=== PATIENT | female | born 1985 | race Caucasian/White ===

== ENCOUNTER 2017-03-05 15:50 | Inpatient (IN) | payer OTHER ==
[~2017-03-05] VITALS: Ht 172.7 cm; Wt 87.5 kg
[~2017-03-05 15:50] MED LIST: BACT2OIN TOP; BEDSMIS4; CEPH500C3 PO; CYCL1PAK PO; HYDR50TA94 PO; NORC10TA2 PO; ORTHO TRI-CYCLEN PO; OXYC-360 PO; PERM5CRE TOP; STRO3TAB PO; TRAM-388 PO; TRAM50 PO; WHEEMIS3 XX; Z.0.WALKERFRONT
[2017-03-05 16:05] VITALS: BP 110/67; PULSE 79; RESP 16; TEMP 98; O2SAT 100
[2017-03-05] MEDS ORDERED: XANA2TAB2 PO (16:22)
[2017-03-05] MEDS ORDERED: SERO50TA PO (16:22)
[2017-03-05] MEDS ORDERED: TRAZ100T6 PO (16:22)
[2017-03-05] MEDS ORDERED: VENL50TA PO (16:22)
[2017-03-05 18:07] VITALS: BP 86/49; PULSE 77; RESP 18; O2SAT 98
--- NOTE | 2017-03-05 21:12 | PD ---
HPI Chief Complaint: Psychiatric Symptoms Time Seen by Provider: 21:10 Travel History International Travel<30 days: No Contact w/Intl Traveler<30days: No Traveled to known affect area: No History of Present Illness HPI 31-year-old female is brought to the emergency Department under Nino act by local police. Apparently, the patient was at [facility] use some are none after an accident overdose on heroin. She was admitted to the hospital. However, upon discharge, she got into a fight with her mother and she was Nino acted and brought to [facility]. She denies any suicidal or homicidal ideation to me. Patient states that she just cannot a rehabilitation and used heroin once. She denies any medical complaints at this time. COUNTS INCLUDE 234 BEDS AT THE [facility] Past Medical History Anxiety: Yes Depression: Yes Cancer: No (CONE BIOPSY -CERVIC) Cardiovascular Problems: No Diabetes: No Diminished Hearing: No Glaucoma: No Genitourinary: No Hepatitis: No Hiatal Hernia: No Hypertension: No Musculoskeletal: No Neurologic: No Respiratory: No Thyroid Disease: No ?: Unknown LMP: OVER 1 YEAR : 2 Para: 1 Miscarriage: 0 : 1 Past Surgical History Abdominal Surgery: Yes (CSECTION) Cardiac Surgery: No Section: Yes Ear Surgery: No Endocrine Surgery: No Eye Surgery: No Genitourinary Surgery: No Gynecologic Surgery: No Thoracic Surgery: No Other Surgery: Yes Social History Alcohol Use: Yes (RARE) Tobacco Use: Yes (1 PK/DAY) Substance Use: Yes (MARIJUANA / HEROIN) Allergies-Medications (Allergen,Severity, Reaction): Coded Allergies: No Known Allergies (Verified , 07/30/15) Reported Meds & Prescriptions Reported Meds & Active Scripts Active Reported Seroquel (Quetiapine Fumarate) 50 Mg Tab 150 Mg PO HS Trazodone (Trazodone HCl) 100 Mg Tablet 200 Mg PO HS Effexor (Venlafaxine HCl) 50 Mg Tab 150 Mg PO DAILY Xanax (Alprazolam) 2 Mg Tab 2 Mg PO Q8H PRN Review of Systems Except as stated in HPI: all other systems reviewed are Neg Physical Exam Narrative GENERAL: Well-nourished, well-developed female patient, ambulatory. Afebrile. SKIN: Focused skin assessment warm/dry. HEAD: Normocephalic. Atraumatic. EYES: No scleral icterus. No injection or drainage. NECK: Supple, trachea midline. No JVD or lymphadenopathy. CARDIOVASCULAR: Regular rate and rhythm without murmurs, gallops, or rubs. RESPIRATORY: Breath sounds equal bilaterally. No accessory muscle use. Lungs sounds are clear to auscultation. GASTROINTESTINAL: Abdomen soft, non-tender, nondistended. MUSCULOSKELETAL: No cyanosis, or edema. PSYCHIATRIC: No delusional thought processes. No hallucinations. Data Data Last Documented VS Vital Signs Date Time Temp Pulse Resp B/P Pulse Ox O2 Delivery O2 Flow Rate FiO2 03/05/17 22:34 80 18 112/59 03/05/17 18:07 98 03/05/17 16:05 98.0 Orders Psych Screen (03/05/17 16:26) Complete Blood Count With Diff (03/05/17 20:51) Comprehensive Metabolic Panel (03/05/17 20:51) Ed Urine Pregnancytest Poc (03/05/17 20:51) Drug Screen, Random Urine (03/05/17 20:51) Alcohol (Ethanol) (03/05/17 20:51) Labs Laboratory Tests Test 03/05/17 21:21 White Blood Count 7.4 TH/MM3 Red Blood Count 3.96 MIL/MM3 Hemoglobin 11.5 GM/DL Hematocrit 33.6 % Mean Corpuscular Volume 84.9 FL Mean Corpuscular Hemoglobin 28.9 PG Mean Corpuscular Hemoglobin 34.1 % Concent Red Cell Distribution Width 14.6 % Platelet Count 256 TH/MM3 Mean Platelet Volume 7.0 FL Neutrophils (%) (Auto) 48.8 % Lymphocytes (%) (Auto) 36.0 % Monocytes (%) (Auto) 6.3 % Eosinophils (%) (Auto) 8.4 % Basophils (%) (Auto) 0.5 % Neutrophils # (Auto) 3.6 TH/MM3 Lymphocytes # (Auto) 2.6 TH/MM3 Monocytes # (Auto) 0.5 TH/MM3 Eosinophils # (Auto) 0.6 TH/MM3 Basophils # (Auto) 0.0 TH/MM3 CBC Comment DIFF FINAL Differential Comment Sodium Level 140 MEQ/L Potassium Level 3.9 MEQ/L Chloride Level 108 MEQ/L Carbon Dioxide Level 24.6 MEQ/L Anion Gap 7 MEQ/L Blood Urea Nitrogen 11 MG/DL Creatinine 0.73 MG/DL Estimat Glomerular Filtration 94 ML/MIN Rate Random Glucose 89 MG/DL Calcium Level 8.2 MG/DL Total Bilirubin 0.2 MG/DL Aspartate Amino Transf 13 U/L (AST/SGOT) Alanine Aminotransferase 20 U/L (ALT/SGPT) Alkaline Phosphatase 83 U/L Total Protein 6.1 GM/DL Albumin 2.9 GM/DL Ethyl Alcohol Level LESS THAN 3 MG/DL MDM Medical Decision Making Medical Screen Exam Complete: Yes Emergency Medical Condition: Yes Medical Record Reviewed: Yes Differential Diagnosis Depression versus anxiety versus substance abuse Narrative Course 31-year-old female presents to the emergency Department under Nino act by local police. She denies any suicidal or homicidal ideation to me. CBC, CMP, alcohol level, urine drug screen, urine test are ordered and pending. CBC shows no acute abnormality. CMP shows no acute abnormality. Alcohol level is less than 3. UDS is pending. Patient is medically cleared for psychiatric screening and disposition. Mental health screening discussed with the patient. Psychiatric screen ordered. Diagnosis Primary Impression: Medical clearance for psychiatric admission Additional Instructions: Patient is medically cleared for psychiatric screening and disposition. Condition: Stable Harleen Becker Mar 05, 2017 21:11
[2017-03-05 21:53] LABS: AUTOMATED NEUTROPHIL # 3.6 TH/MM3 (1.8-7.7); BASOPHIL % 0.5 % (0.0-2.0); EOSINOPHIL # 0.6 TH/MM3 (0-0.4); EOSINOPHIL % 8.4 % (0.0-4.0); HEMATOCRIT 33.6 % (35.0-46.0); HEMO FLAGS DIFF FINAL; LYMPHOCYTE # 2.6 TH/MM3 (1.0-4.8); MEAN CELL VOLUME 84.9 FL (80.0-100.0); MEAN CORPUSCULAR HEMOGLOBIN 28.9 PG (27.0-34.0); MEAN CORPUSCULAR HGB CONC 34.1 % (32.0-36.0); MONO % 6.3 % (0.0-8.0); NEUT % 48.8 % (16.0-70.0); PLATELET COUNT 256 TH/MM3 (150-450); RED BLOOD COUNT 3.96 MIL/MM3 (4.00-5.30); RED CELL DISTRIBUTION WIDTH 14.6 % (11.6-17.2); WHITE BLOOD COUNT 7.4 TH/MM3 (4.0-11.0)
[2017-03-05 22:08] LABS: ANION GAP 7 MEQ/L (5-15); AST (GOT) 13 U/L (15-37); BICARBONATE 24.6 MEQ/L (21.0-32.0); BLOOD UREA NITROGEN 11 MG/DL (7-18); CHLORIDE 108 MEQ/L (98-107); GLOMERULAR FILTRATION RATE 94 ML/MIN (>89); POTASSIUM 3.9 MEQ/L (3.5-5.1); SODIUM (NA) 140 MEQ/L (136-145)
[2017-03-05 22:09] LABS: ALT (GPT) 20 U/L (10-53)
[2017-03-05 22:11] LABS: ALKALINE PHOSPHATASE 83 U/L (45-117); TOTAL BILIRUBIN ADULT 0.2 MG/DL (0.2-1.0)
[2017-03-05 22:34] VITALS: BP 112/59; PULSE 80; RESP 18
[2017-03-06 04:52] LABS: AMPHETAMINE, URINE NEG (NEG); BARBITURATES, URINE NEG (NEG); COCAINE, URINE NEG (NEG)
[2017-03-06 06:17] VITALS: BP 127/75; PULSE 67; RESP 16
[2017-03-06] MEDS ORDERED: traZODone HCL 50 MG TAB PO PRN (09:30)
[2017-03-06] MEDS ORDERED: MAGNESIUM HYDROXIDE SUSP 30 ML CUP PO PRN (09:30)
[2017-03-06] MEDS ORDERED: ALUMINUM/MAGNESIUM/SIMETH 30 ML CUP PO PRN (09:30)
[2017-03-06] MEDS ORDERED: LORazepam 0.5 MG TAB PO PRN (09:30)
[2017-03-06] MEDS ORDERED: LORazepam 2 MG/ML VIAL IM PRN ×2 (09:30)
--- NOTE | 2017-03-06 09:38 | HHI.HP ---
Provisional Diagnosis Admission Date [place] I. Major depression, single episode Certification of Person's Competence To Provide Express and Informed Consent I have personally examined Lilian Lozada , a person being served at [facility] on, Mar 06, 2017 09:27. Express and informed consent means consent voluntarily given in writing, by a competent person, after sufficient explanation and disclosure of the subject matter involved to enable the person to make a knowing and willful decision without any element of force, fraud, deceit, duress, or other form of constraint or coercion. This person is 18 years of age or older, is not now known to be incompetent to consent to treatment with a guardian advocate, and does not have a health care surrogate or proxy currently making medical treatment decisions. I have found this person to be one of the following: [x] Competent to provide express and informed consent, as defined above, for voluntary admission to this facility and is competent to provide express and informed consent for treatment. He/she has the consistent capacity to make well reasoned, willful, and knowing decisions concerning his or her medical or mental health treatment. The person fully and consistently understands the purpose of the admission for examination/placement and is fully capable of personally exercising all rights assured under [place] Incompetent to provide express and informed consent to voluntary admission, and this is incompetent to provide express and informed consent to treatment. The person must be transferred to involuntary status and a petition for a guardian advocate filed with the Circuit Court. [] Refusing to provide express and informed consent to voluntary admission but is competent to provide express and informed consent for treatment. The person must be discharged or transferred to involuntary status. Form shall be completed within 24 hours of a person's arrival at the receiving facility and filed in the clinical record of each person: 1. Admitted on a voluntary basis 2. Permitted to provide express and informed consent to his/her own treatment 3. Allowed to transfer from involuntary to voluntary status 4. Prior to permitting a person to consent to his or her own treatment after having been previously found incompetent to consent to treatment. History of Present Illness Capacity: Has Capacity HPI 31-year-old female who was brought in under a Nino act filled out by law enforcement, which indicates "stated that she will hurt herself and would rather ." Furthermore, the business law instructor was called by the patient 's mother as the patient was being released from [facility], after an overdose. The patient's mother is apparently gravely concerned about the patient's well- being and feels the patient is at high risk for self-harm. Additionally, after the overdose, the patient's roommates reportedly found her in the bathroom, not adequately breathing. When confronted with this information, the patient provides contradictory and inadequate answers. She states the business law instructor who Nino acted her went to high school with her, thereby attempting to dismiss his report. She is not aware of her roommates finding her in the bathroom, "barely breathing". She states she only overdosed one time since becoming clean several weeks ago at a rehabilitation center. She is currently denying suicidal or homicidal ideation, plan or intent. However, she refuses to go home to her mother and declines to go back to her roommates. She is not employed and obviously having difficulty caring for herself. This physician does not feel the patient is a credible or reliable historian and that her contradictory statements about wanting to make her a high risk for another suicide attempt. She has symptoms of major depression including depressed mood, anhedonia, suicidal thinking with attempts, diminished self-esteem, problems with concentration, feelings of helplessness, diminished energy, social withdrawal, as well as sleep and appetite disturbances. Review of Systems Except as stated in HPI: all other systems reviewed are Neg Past Psych History Psychological trauma history Denied for psychological trauma and denied for previous psychiatric treatment. Violence risk - others (6 mos) Minimal Violence risk - self (6 mos) High Substance Abuse History Drugs/Alcohol past 12 months Patient does have a history of substance abuse. She attended a detox facility several weeks ago. Past Family Social History Coded Allergies: No Known Allergies (Verified , 07/30/15) Reported Medications Quetiapine (Seroquel)50 Mg [id number] Mg PO HS #30 TAB Ref 0 03/05/17 Trazodone 100 Mg [id number] Mg PO HS #30 TAB Ref 0 03/05/17 Venlafaxine (Effexor)50 Mg [id number] Mg PO DAILY #60 TAB Ref 0 03/05/17 Alprazolam (Xanax)2 Mg Tab2 Mg PO Q8H PRN (ANXIETY) Ref 0 03/05/17 Family History Positive for mood and anxiety disorders. Social History Currently unemployed. Has no income. Has no place to stay. History of substance abuse. Patient's Strengths (min. 2) Verbal and resilience. Physical Exam GENERAL: SKIN: Warm and dry. HEAD: Normocephalic. EYES: No scleral icterus. No injection or drainage. NECK: Supple, trachea midline. No JVD or lymphadenopathy. CARDIOVASCULAR: Regular rate and rhythm without murmurs, gallops, or rubs. RESPIRATORY: Breath sounds equal bilaterally. No accessory muscle use. GASTROINTESTINAL: Abdomen soft, non-tender, nondistended. MUSCULOSKELETAL: No cyanosis, or edema. BACK: Nontender without obvious deformity. No CVA tenderness. Vital Signs Vital Signs Date Time Temp Pulse Resp B/P Pulse Ox O2 Delivery O2 Flow Rate FiO2 03/06/17 06:17 67 16 127/75 03/05/17 18:07 98 03/05/17 16:05 98.0 Mental Status Examination Speech: Unremarkable Orientation: x3 Memory: Unremarkable Thought Process: Organized, Goal Directed Thought Content: Unremarkable Hallucination Type: None Attention and Concentration: Good Suicidal Ideation: Yes Previous Suicide Attempts: Yes Homicidal Ideation: No Previous Homicide Attempts: No Insight: Poor Judgment: Unrealistic Affect: Anxious, Sad Mood: Sad, Oppositional Motor Activity: Normal gait Assessment & Plan Problem List: (1) Moderately severe major depressive disorder, single episode ICD Code: F32.9 Assessment & Plan Estimated LOS: days this is a 31-year-old female brought in under a Nino act after overdose. Nino act states the patient is wanting to hurt herself and would rather . Patient is demonstrating contradictory information and is deemed to be both an unreliable historian as well as at high risk for self- harm. She is being admitted for evaluation and treatment of her depression. She also has a fractured foot which is adding to her stress and this physician is obtaining a hospitalist consult to assess. Additionally, we will obtain a comprehensive metabolic profile and CBC to determine if any metabolic problems or infectious process are causing or contributing to her depression. Additionally, we will obtain a thyroid stimulating hormone test to determine if she is hypo-or hyper per thyroid, again causing or contributing to her depression. She will receive testing for vitamin B-12 and vitamin D to determine if vitamin deficiency is causing or creating her depression. We will obtain a EKG to ensure her cardiac conduction is adequate to support psychotropic medications, including antidepressant therapy. This physician spoke with the patient's nurse regarding her current and recent behavior. Patient will also have a yard manager assigned to gather more information from the patient's mother and assist with disposition planning. Homer Olmos MD Mar 06, 2017 09:38
[2017-03-06 11:23] VITALS: BP 118/67; PULSE 80; RESP 18; O2SAT 99
[2017-03-06 11:45] LABS: BETA HCG QUANT LESS THAN 1 MIU/ML (0-5)
[2017-03-06 13:34] VITALS: BP 118/67; PULSE 80; RESP 18; O2SAT 99
[2017-03-06 14:25] VITALS: BP 144/92; PULSE 83; RESP 18; TEMP 98.7; O2SAT 99
[2017-03-06] MEDS: LORazepam 1 MG TAB PO PRN ×2 (15:36→21:48)
[2017-03-06] MEDS: ACETAMINOPHEN 325 MG TAB PO PRN ×2 (15:37→20:37)
[2017-03-07 05:05] VITALS: BP 111/69; PULSE 82; RESP 16; TEMP 98.1
[2017-03-07] MEDS: ACETAMINOPHEN 325 MG TAB PO PRN (08:17)
--- NOTE | 2017-03-07 12:41 | HHI.DS ---
Psychiatry Discharge Summary Inpatient Psychiatric care?: Yes Advance Directive: No Reason Not Provided: Due to Patient Condition Mental Health AdvanceDirective: No Health Care Proxy: No Admission Admission Date Mar 06, 2017 at 09:25 Admission Diagnosis: (1) Moderately severe major depressive disorder, single episode ICD Code: F32.9 Brief History 31-year-old female who was brought in under a Nino act filled out by law enforcement, which indicates "stated that she will hurt herself and would rather ." Furthermore, the lawn specialist was called by the patient 's mother as the patient was being released from [facility], after an overdose. The patient's mother is apparently gravely concerned about the patient's well- being and feels the patient is at high risk for self-harm. Additionally, after the overdose, the patient's roommates reportedly found her in the bathroom, not adequately breathing. When confronted with this information, the patient provides contradictory and inadequate answers. She states the lawn specialist who Nino acted her went to high school with her, thereby attempting to dismiss his report. She is not aware of her roommates finding her in the bathroom, "barely breathing". She states she only overdosed one time since becoming clean several weeks ago at a rehabilitation center. She is currently denying suicidal or homicidal ideation, plan or intent. However, she refuses to go home to her mother and declines to go back to her roommates. She is not employed and obviously having difficulty caring for herself. This physician does not feel the patient is a credible or reliable historian and that her contradictory statements about wanting to make her a high risk for another suicide attempt. She has symptoms of major depression including depressed mood, anhedonia, suicidal thinking with attempts, diminished self-esteem, problems with concentration, feelings of helplessness, diminished energy, social withdrawal, as well as sleep and appetite disturbances. Tobacco Use In Past 30 Days: No Tobacco Past 30 Days Alcohol Use: Never Hospital Course Patient was admitted to a locked, inpatient psychiatric unit. Appropriate precautions were in place throughout patient's hospital stay. Patient was seen and examined by psychiatry and also visited by counselor. The patient presents to us under a Nino Act apparently after eloping from [facility] following an unintentional opioid overdose. Patient has a history of opioid use disorder and until recently had been in treatment through the [facility]. There has been no evidence of any suicidality or homicidality on the inpatient unit. Nursing staff reports that, besides being somewhat medication seeking, the patient has been no behavioral problem. Patient seen and examined with nurse. Patient reports that after awakening from her opioid overdose, which she maintains was unintentional in nature, she was somewhat delirious and fearful of being in the hospital. She tried to leave the hospital and was apparently caught by her mother in the parking lot. Police were called, and patient was Nino Acted. The patient adamantly denies any suicidal or homicidal ideation, intent or plan on direct questioning. I can elicit no depressive or hypomanic/manic symptoms. She denies any audiovisual hallucinations, and I can elicit no delusional material. She denies a history of psychiatric diagnosis other than the substance use disorder. She denies a history of suicide attempts. She denies a family history of serious mental illness or suicide but does report that several members of the family have alcohol use disorder. She tells me that she had been working a 28 day program through the [employer] [employer] but had been sent home about a week ago because of insurance issues and relapsed to heroin. She says that she used her typical amount, but since she had been abstinent for a period of about 6 weeks, it was simply too much, and she unintentionally overdosed. She denies any other substance use. She reports that generally she lives in her mother's house and denies any access to guns or firearms. She is agreeable to proceeding to a chemical dependency treatment facility today. With the patient's permission, I have obtained collateral from the patient's mother, Raquel, over the phone. Raquel's report largely confirms the patient's narrative of the circumstances of her presentation here. Raquel does not believe that the patient has primary mental illness, "I don't think she's psycho," but is gravely concerned about the patient's substance use and would like to see her return to a residential chemical dependency program. She notes that the patient has no history of suicide attempts. I educate mother about the [place] Act. There is no evidence of a mental illness as defined under the Nino act. The patient has substance use disorder. She does not meet the Nino Act criteria after weighing the relevant factors. Treatment for her substance use disorder is what is indicated in the present case. She is agreeable to proceeding to residential chemical dependency treatment program today, and with a counselor she has arranged to go to the [facility] in [place]. Patient is to be discharged today to the [facility]. She is to follow-up with primary care. I counseled the patient regarding warning signs for need to return to the psychiatric emergency room as part of the general safety plan. Results Blood Pressure 111 / 69 Vital Signs Date Time Temp Pulse Resp B/P Pulse Ox O2 Delivery O2 Flow Rate FiO2 03/07/17 05:05 98.1 82 16 111/69 03/06/17 14:25 99 03/06/17 13:34 Room Air Laboratory Tests Test 03/05/17 03/06/17 21:21 04:16 Red Blood Count 3.96 MIL/MM3 (4.00-5.30) Hemoglobin 11.5 GM/DL (11.6-15.3) Hematocrit 33.6 % (35.0-46.0) Eosinophils (%) (Auto) 8.4 % (0.0-4.0) Eosinophils # (Auto) 0.6 TH/MM3 (0-0.4) Chloride Level 108 MEQ/L (98-107) Calcium Level 8.2 MG/DL (8.5-10.1) Aspartate Amino Transf 13 U/L (15-37) (AST/SGOT) Total Protein 6.1 GM/DL (6.4-8.2) Albumin 2.9 GM/DL (3.4-5.0) Urine Opiates Screen POS (NEG) Urine Benzodiazepines Screen POS (NEG) Urine Cannabinoids Screen POS (NEG) Summary of Procedures None done Imaging None done Pending results at discharge: No Medications # of Antipsychotic meds at D/C: 1 Approp Antipsych med options 1 - Minimum of three failed multiple trials of monotherapy. 2 - Documented plan to taper to monotherapy due to previous use of multiple meds OR cross-taper in progress at D/C. 3 - Documentation of augmentation of Clozapine. 4 - Justification other than those listed in allowable values 1-3, document here : Discharge Discharge Date: Mar 07, 2017 Discharge Diagnosis: (1) Severe opioid use disorder Diagnosis: Principal ICD Code: F11.20 Mental Status Exam at Disch Patient is in hospital attire. Patient is well groomed. Patient is awake and alert and oriented person and hospital at least. No evidence of delirium. No motor abnormalities appreciated. No signs of withdrawal noted. Speech is within normal limits for rate, tone, volume. Language and fund of knowledge average. Focus and concentration intact. Memory grossly intact on clinical exam. Mood is fair. Affect is full and reactive. Thought process linear. No delusions elicited. Denies audiovisual hallucinations and does not appear internally stimulated. Denies suicidal or homicidal ideation, intent, or plan and contracts for safety. Insight and judgment seem poor. Pt Condition on Discharge: Stable Discharge Disposition: Trnsfr to Other Facility ([facility]) Discharge Instructions Diet Instructions: As Tolerated, No Restrictions Activities you can perform: Weight Bearing as Delmy Scheduled Appointment: [facility], follow up from there New Orders: CBC WITH DIFF - 1 Week Continued Medications: Quetiapine (Seroquel) 50 Mg Tab 150 MG PO HS #30 Ref 0 TAB Trazodone (Trazodone) 100 Mg Tablet 200 MG PO HS Control Depression #30 Ref 0 TAB Venlafaxine (Effexor) 50 Mg Tab 150 MG PO DAILY #60 Ref 0 TAB Discontinued Medications: Alprazolam (Xanax) 2 Mg Tab 2 MG PO Q8H PRN ANXIETY Ref 0 TAB Discharge Time > 30 minutes Discharge/Advance Care Plan Health Problems: (1) Moderately severe major depressive disorder, single episode Goals to promote your health * To prevent worsening of your condition and complications * To maintain your health at the optimal level Directions to meet your goals Take your medications as prescribed Follow your dietary instruction Follow activity as directed Keep your appointments as scheduled Take your immunizations and boosters as scheduled If your symptoms worsen call your PCP, if no PCP go to Urgent Care Center or Emergency Room For 24/02 questions related to your inpatient stay or results of tests pending at discharge, please contact Dr. Barry Zaragoza at Smoking is Dangerous to Your Health. Avoid second hand smoking Barry Zaragoza MD Mar 07, 2017 12:41
== END 2017-03-07 16:15 | disposition home or self-care (01) | DRG 881 ==
LOC: NEDAMB 15:50 → NEDA 03-06 09:25 → H260 03-06 14:00
PROVIDERS: ADMIT Psychiatry & Neurology Psychiatry; ATTEND Psychiatry & Neurology Psychiatry
DX: F32.9 Major depressive disorder, single episode, unspecified (principal); F11.20 Opioid dependence, uncomplicated; F17.210 Nicotine dependence, cigarettes, uncomplicated; F41.9 Anxiety disorder, unspecified
CPT/HCPCS: 80053; 80307; 84702; 84703; 85025

== ENCOUNTER 2018-06-08 10:49 | Inpatient (IN) ==
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
[2018-06-08] MEDS ORDERED: Sodium Chlor 0.9% Inj 500 ML IV.SIG PRN (12:03)
[2018-06-08] MEDS ORDERED: Oxytocin 30 Units/500ml Premix 30 UNITS/500 ML BAG IV.SIG ONE ×2 (12:03→15:00)
[2018-06-08] MEDS ORDERED: fentaNYL Citrate Inj 100 MCG/2 ML Ampul IV.PUSH PRN ×2 (12:03)
[2018-06-08] MEDS ORDERED: Naloxone Inj 0.4 MG/ML Vial IV.PUSH PRN ×2 (12:03→17:22)
[2018-06-08] MEDS ORDERED: Sod Chloride 0.9% Inj 1,000 ML IV.CONT PRN (12:03)
[2018-06-08] MEDS ORDERED: Citric Acid/Sodium Citrate Liq 30 ML UDC PO SCH ×2 (12:15→13:45)
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
[2018-06-08 13:29] LABS: Baso # (Auto) 0.1 th/mm3 (0.0-0.2); Baso % (Auto) 0.3 % (0.0-2.0); Eos % (Auto) 0.1 % (0.0-4.0); Hematocrit 30.3 % (35.0-46.0); Hemoglobin 9.9 gm/dL (11.6-15.3); Lymph # (Auto) 1.8 th/mm3 (1.0-4.8); Lymph % (Auto) 10.5 % (9.0-44.0); Mean Corpuscular HGB Conc 32.8 % (32.0-36.0); Mean Corpuscular Hemoglobin 26.7 pg (27.0-34.0); Mean Corpuscular Volume 81.5 fL (80.0-100.0); Mean Platelet Volume 8.3 fL (7.0-11.0); Mono # (Auto) 0.9 th/mm3 (0.0-0.9); Mono % (Auto) 5.1 % (0.0-8.0); Neut # (Auto) 14.2 th/mm3 (1.8-7.7); Platelet Count 300 th/mm3 (150-450); Red Blood Count 3.72 mil/mm3 (4.00-5.30); Red Cell Distribution Width 16.5 % (11.6-17.2); White Blood Count 16.9 th/mm3 (4.0-11.0)
[2018-06-08] MEDS ORDERED: Morphine Sulfate PF Inj 5 MG/10 ML Ampul ONE (13:37)
--- NOTE | 2018-06-08 13:38 | P.OBGPN ---
This is a patient presents in labor desires . Previous for nonreassuring heart rate. While on the L&D unit heart rate variable decelerations noted minimal cervical present progression now 5 cm still at 0 station. Please note with the heart rate not only variable decelerations noted however when attempted to put a scalp electrode heart rate decelerations down audible approximately 1-2 minutes plan repeat C- section patient counseled of alternatives benefits complications. En route to the OR
[2018-06-08 13:43] LABS: Amphetamine Urine With Conf Neg (Neg); Benzodiazepine Urine With Conf Neg (Neg)
[2018-06-08] MEDS ORDERED: Clindamycin Inj 600 MG/4 ML Vial ONE ×2 (13:43→14:01)
[2018-06-08 13:45] LABS: Bacteria,Urine Rare /hpf; Bilirubin,Urine Negative (Negative); Clarity,Urine Hazy (Clear); Color,Urine Yellow (Yellw/Straw); Glucose,Urine (UA) Negative (Negative); Leukocyte Esterase,Urine Large (Negative); Nitrite,Urine Negative (Negative); Squamous Epithelial Cell,Urine 8 /hpf (0-5)
[2018-06-08] MEDS ORDERED: Gentamicin/NS 80 mg Premix 100 ML IV.SIG ONE ×2 (14:07→15:00)
[2018-06-08] MEDS ORDERED: Bupivacaine Liposomal PF 1.3% Inj 20 ML Vial ONE (14:57)
[2018-06-08] MEDS ORDERED: Sodium Chlor 0.9% Inj 10 ML ONE (14:59)
[2018-06-08] MEDS ORDERED: Clindamycin 900 mg/NS Premix 900 MG/50 ML PIGGYBACK IV.SIG ONE (16:00)
[2018-06-08 16:21] LABS: Baso % (Auto) 0.2 % (0.0-2.0); Eos % (Auto) 0.1 % (0.0-4.0); Hematocrit 25.2 % (35.0-46.0); Hemoglobin 8.4 gm/dL (11.6-15.3); Lymph % (Auto) 6.5 % (9.0-44.0); Mean Corpuscular HGB Conc 33.5 % (32.0-36.0); Mean Corpuscular Hemoglobin 27.1 pg (27.0-34.0); Mean Corpuscular Volume 80.9 fL (80.0-100.0); Mean Platelet Volume 8.5 fL (7.0-11.0); Mono # (Auto) 0.7 th/mm3 (0.0-0.9); Mono % (Auto) 4.3 % (0.0-8.0); Neut # (Auto) 13.6 th/mm3 (1.8-7.7); Neut % (Auto) 88.9 % (16.0-70.0); Platelet Count 266 th/mm3 (150-450); Red Blood Count 3.11 mil/mm3 (4.00-5.30); Red Cell Distribution Width 16.4 % (11.6-17.2); White Blood Count 15.3 th/mm3 (4.0-11.0)
[2018-06-08 17:34] LABS: Hepatitis A IgM Antibody Nonreactive (Nonreactive); Hepatitits B Surface Antigen Nonreactive (Nonreactive)
--- NOTE | 2018-06-08 17:51 | P.OP ---
- Preoperative Diagnosis (1) Desires (vaginal after ) trial (2) Non-reassuring heart rate or rhythm affecting management of mother (3) 40 weeks gestation of - Postoperative Diagnosis (1) Short umbilical cord (2) Prolonged rupture of membranes (3) Thin meconium stained amniotic fluid Date of procedure: 06/08/18 Procedure: Repeat lower uterine segment transverse section Anesthesia: spinal Surgeon: Isamar Schulte MD Creping Machine Operator: Xavier MARIN PGY 1 Estimated blood loss (mL): 700 Operation and Findings: Patient presents to OB ED previous desires . History of methadone use. In triage heart rate decelerations noted. After IV hydration persistent heart rate decelerations noted with exam attempt to place a scalp electrode decel noted. Minimal cervical change present at this time patient and her patient's mother were counseled for repeat delivery alternatives benefits complications including but not limited to risk of permanent injury to the bowel bladder nerve blood vessels ureters any structures in abdomen or pelvis infection hemorrhage will be due to mortality related surgery under anesthesia related procedures even remote possibility of . Risk of maternal injury risk of injury risk of reoperation and infection patient expressed verbal understanding. She was subsequently taken to the OR where she was placed under spinal analgesia received antibiotics preoperatively. Prepped and draped in normal sterile fashion incision was tested noted to be adequate. A Pfannenstiel skin incision was made carried down to the underlying layer of fascia which was incised in midline dissected laterally digitally. Superior aspect of the fascia was grasped with [place] clamps x2 dissected off from the underlying rectus muscle bluntly the same was performed along the inferior aspect of the fascia with care to avoid the bladder. Rectus muscle was blunt entrance into the peritoneum with care to avoid the bladder. Vesicouterine peritoneum mild adhesions noted subsequent was identified bladder flap was created bladder blade was subsequently placed. A transverse incision was made on the uterus extended laterally digitally note the vertex was noted to be direct OP with the face facing the incision. Delivery of the vertex the nares and mouth were bulb suctioned followed by delivery of the remainder of the body note that the umbilical cord was noted to have absence of Domo's jelly as well as short. The membranes were noted to be stained with what appears to be meconium-however cannot rule out chorioamnionitis subsequently cultures were performed of the maternal and side intraoperatively. Delayed cord clamping followed by infant handed over to awaiting neonatology team. A viable female Apgars 8 8 weight 7 pounds 1 ounce without incident. The placenta was delivered. The uterus was exteriorized cleared of all clot and debris. Note to the patient's right deep laceration noted identification of the apex which was subsequently ligated with 0 chromic in a continuous fashion. Proceeded to close the remainder of the incision with another 0 chromic continuous fashion. Proceeded to perform a second imbricating suture note where the deep laceration was noted reassessed reevaluated subsequently imbricated and use the round ligament as a buttress with no further oozing or bleeding noted. Proceeded to perform an Lambert's closure for the second layer. Intermittent figure of eights were placed with good hemostasis noted. Bilateral adnexa noted to be within normal limits. Paracolic gutters were cleared of all clot and debris. Uterus was repositioned the pelvic abdominal cavity. Incision was once again reevaluated noted to have good hemostasis once hemostasis was assured proceeded to close the fascia with 1 PDS in a continuous fashion. Subcutaneous bleeding which was noted to be minimal controlled with Bovie pencil the skin was subsequently closed with 1-0 Monocryl on a Abhay needle. Patient tolerated procedure well sponge lap needle counts correct x2 patient taken to recovery room in stable condition baby taken to NICU for further evaluation.
[2018-06-08] MEDS ORDERED: Ketorolac Inj 30 MG/ML (IVP) Vial IV.PUSH ONE (18:15)
[2018-06-08] MEDS ORDERED: Oxytocin 30 Units/500ml Premix 30 UNITS/500 ML BAG IV.SIG PRN (18:38)
--- NOTE | 2018-06-09 08:23 | P.PNOB ---
Subjective Post day: 1 Interval history: Postoperative day number 1 for emergent for non-reassuring FHT. AFVSS overnight. She states that she has moderate abdominal soreness following her C- section. Incision not draining. Decreased lochia. Denies dysuria. No breast tenderness. She is planning to feed baby by bottle. Appetite good. No nausea or vomiting. Passing flatus. No bowel movements yet. Ambulating well. Denies calf pain, shortness of breath, or cough. Otherwise, she is doing well this morning and has no other complaints. She states that she normally receives Methadone from the [facility] [place], 150mg liquid PO daily. She usually received her dose from the clinic at 6am every morning and last picked up a dose yesterday morning. Called the clinic this morning, who confirmed that the patient is seen at their clinic, in addition to the patient's dosage. Objective Vital Signs/I&O: Vital Signs 06/08/18 11:25 06/08/18 11:30 06/08/18 11:55 Temperature Pulse Rate 80 81 Respiratory Rate 18 Blood Pressure 141/78 H 06/08/18 13:20 06/08/18 15:10 06/08/18 15:30 Temperature 98.2 F Pulse Rate 86 71 16 L Respiratory Rate 20 16 Blood Pressure 134/77 128/60 97/52 L 06/08/18 15:45 06/08/18 15:55 06/08/18 17:31 Temperature 98.6 F 99.1 F Pulse Rate 73 70 75 Respiratory Rate 20 20 18 Blood Pressure 118/61 121/71 06/08/18 20:55 06/09/18 00:00 06/09/18 04:00 Temperature 98.3 F 98.5 F 98.3 F Pulse Rate 67 79 69 Respiratory Rate 18 18 18 Blood Pressure 109/67 98/55 L 100/56 L 06/09/18 07:50 Temperature 98.1 F Pulse Rate 72 Respiratory Rate 16 Blood Pressure 92/50 L Intake & Output 06/08/18 06/09/18 06/09/18 18:59 06:59 18:59 Weight 109.319 kg Other: Weight On Admission 109.316 kg Result Diagrams: 06/08/18 15:49 Objective Remarks: GENERAL: Well-nourished, well-developed patient. CARDIOVASCULAR: Regular rate and rhythm without murmurs, gallops, or rubs. RESPIRATORY: Breath sounds equal bilaterally. No accessory muscle use. ABDOMEN/GI: Abdomen soft, non-tender. Fundus: Firm, non-tender at umbilicus. GENITOURINARY: Light to moderate bleeding. EXTREMITIES: No cyanosis or edema, non-tender, without signs of DVT. Medications and IVs: Active Medications Citric Acid/Sodium Citrate (Sodium Citrate/Citric Acid Liq) 30 ml PO [employer] [facility] Stop: 06/12/18 12:14 Citric Acid/Sodium Citrate (Sodium Citrate/Citric Acid Liq) 30 ml PO [employer] [facility] Stop: 06/12/18 13:44 Diphenhydramine HCl (Benadryl) 50 mg PO Q6H PRN PRN Reason: MILD TO MODERATE ITCHING Stop: 06/09/18 14:24 Diphenhydramine HCl (Benadryl Inj) 25 mg IV.PUSH Q6H PRN PRN Reason: MILD TO MODERATE ITCHING Stop: 06/09/18 14:24 Diphtheria/Pertussis/Tetanus Vacc (Boostrix Vaccine Inj) 0.5 ml IM .ONCE ONE Stop: 06/09/18 16:01 Fentanyl Citrate (Fentanyl Inj) 50 mcg IV.PUSH Q1H PRN PRN Reason: Pain Scale 3 - 5 Fentanyl Citrate (Fentanyl Inj) 100 mcg IV.PUSH Q1H PRN PRN Reason: PAIN SCALE 6 TO 10 Lactated Ringer's (Lr 1000 Ml Inj) 1,000 mls @ 125 mls/hr IV.CONT .Q8H [facility] Last Admin: 06/08/18 23:06 Dose: 125 mls/hr Lactated Ringer's (Lr 1000 Ml Inj) 1,000 mls @ 3,000 mls/hr IV.SIG UNSCH PRN PRN Reason: compromise or epidural Last Admin: 06/08/18 12:50 Dose: 3,000 mls/hr Sodium Chloride (Ns Inj) 500 mls @ 1,000 mls/hr IV.SIG UNSCH PRN PRN Reason: SEE LABEL COMMENTS Sodium Chloride (Ns Inj) 1,000 mls @ 100 mls/hr IV.CONT .Q10H PRN PRN Reason: SEE LABEL COMMENTS Lactated Ringer's (Lr 1000 Ml Inj) 1,000 mls @ 150 mls/hr IV.CONT .Q6H40M [facility] Last Admin: 06/08/18 17:50 Dose: 150 mls/hr Lactated Ringer's (Lr 1000 Ml Inj) 1,000 mls @ 100 mls/hr IV.CONT .Q10H [facility] Stop: 06/09/18 14:37 Oxytocin (Pitocin 30 Units/Ns 500 Ml Premix) 30 units in 500 mls @ 100 mls/hr IV.SIG UNSCH PRN PRN Reason: Heavy bleeding Ibuprofen (Motrin) 800 mg PO Q8H PRN PRN Reason: pain scale 1-10 Lidocaine HCl (Xylocaine 1% Inj) 0.1 ml I-DERMAL PRN PRN PRN Reason: For IV start Stop: 06/11/18 12:02 Lidocaine HCl (Xylocaine 1% Inj) 10 ml INFILTRATN PRN PRN PRN Reason: For episiotomy repair Stop: 06/10/18 12:02 Measles/Mumps/Rubella Vaccine Live (M-M-R Ii Vaccine Inj) 0.5 ml SQ .ONCE ONE Stop: 06/09/18 16:01 Mineral Oil (Muri-Lube Oil) 10 ml TOPICAL PRN PRN PRN Reason: PRN perineal massage Miscellaneous Information ([facility] [place] [facility] 1 each OTHER UNSCH PRN PRN Reason: SEE LABEL COMMENTS Stop: 06/09/18 14:24 Miscellaneous Information ([facility] [place] [facility] 1 each OTHER UNSCH PRN PRN Reason: SEE LABEL COMMENTS Stop: 06/09/18 14:24 Naloxone HCl (Narcan Inj) 0.1 mg IV.PUSH Q2M PRN PRN Reason: for opiate reversal Naloxone HCl (Narcan Inj) 0.4 mg IV.PUSH UNSCH PRN PRN Reason: SEE LABEL COMMENTS Stop: 06/09/18 14:24 Oxycodone/Acetaminophen (Percocet 5/325 Mg) 1 tab PO Q4H PRN PRN Reason: PAIN SCALE 3 TO 5 Oxycodone/Acetaminophen (Percocet 5/325 Mg) 2 tab PO Q4H PRN PRN Reason: PAIN SCALE 6 TO 10 Last Admin: 06/09/18 06:18 Dose: 2 tab Sodium Chloride (Ns Flush) 2 ml IV.FLUSH BID [facility] Last Admin: 06/09/18 05:11 Dose: Not Given Sodium Chloride (Ns Flush) 2 ml IV.FLUSH PRN PRN PRN Reason: FLUSH AFTER USING IV ACCESS Assessment and Plan - Diagnosis (1) 40 weeks gestation of Code(s): Z3A.40 - 40 weeks gestation of Status: Acute (2) Uterine contractions during Code(s): O62.2 - Other uterine inertia Status: Acute (3) Desires (vaginal after ) trial Code(s): O34.219 - Maternal care for unspecified type scar from previous delivery Status: Acute - Plan 32 y/o female who is POD# 1 s/p emergent CXN for non-reassuring tracing - labs showed non-reactive hepatitis panel, non-detectable G/C, and rubella indeterminate. -RPR pending. -H&H stable post-operatively at 8.4, from 9.9 pre-operatively. C/S with EBL of 700 mL. -Continue routine care. -Motrin PRN pain. -Continue home dose of Methadone. -Encouraged OOB. Advised pelvic rest for 6 wks. Will need a f/u appt. in 1 wk for incision check. -Re: ctrl, she would like to consider her options further. -D/c in 1-2 more days. wdw OB attending, Dr. Schulte
[2018-06-09] MEDS: Methadone 10 MG Tablet PO SCH (10:36)
[2018-06-09] MEDS ORDERED: Diphtheria/Tetanus/Pertussis Vaccine Inj 0.5 ML Syringe IM ONE (16:00)
[2018-06-09] MEDS ORDERED: Measles/Mumps/Rubella Vaccine Inj 0.5 ML Vial SQ ONE (16:00)
[2018-06-10 08:06] VITALS: BP 116/60; PULSE 76; RESP 16; TEMP 98.1
[2018-06-10] MEDS: Methadone 10 MG Tablet PO SCH (08:51)
--- NOTE | 2018-06-10 10:01 | P.PNOB ---
Subjective Post day: 2 Interval history: Postoperative day number 2. AFVSS overnight. Pain well controlled with Motrin and Percocet. Home methadone continued while in hospital, receives 150mg liquid PO daily, confirmed yesterday. Incision not draining. Decreased lochia. Denies dysuria. No breast tenderness. She is planning to feed the baby via bottle. Appetite good. No nausea or vomiting. + flatus. No bowel movement. Ambulating well. Denies calf pain, shortness of breath, or cough. Otherwise, she is doing well this morning and has no other complaints. Patient states that she would like to return home, while baby remains in the NICU. Objective Vital Signs/I&O: Vital Signs 06/09/18 11:46 06/09/18 20:00 06/10/18 08:00 Temperature 97.8 F 97.8 F 98.1 F Pulse Rate 72 91 H 76 Respiratory Rate 16 18 16 Blood Pressure 97/50 L 116/57 L 116/60 Result Diagrams: 06/08/18 15:49 Objective Remarks: GENERAL: Well-nourished, well-developed patient. CARDIOVASCULAR: Regular rate and rhythm without murmurs, gallops, or rubs. RESPIRATORY: Breath sounds equal bilaterally. No accessory muscle use. ABDOMEN/GI: Abdomen soft, non-tender. Incision site bandage changed yesterday. No bleeding or drainage. Fundus: Firm, non-tender at umbilicus. GENITOURINARY: Light to moderate bleeding. EXTREMITIES: No cyanosis or edema, non-tender, without signs of DVT. Medications and IVs: Active Medications Citric Acid/Sodium Citrate (Sodium Citrate/Citric Acid Liq) 30 ml PO BLENDING LINE [employer]END[employer] [facility] Stop: 06/12/18 12:14 Citric Acid/Sodium Citrate (Sodium Citrate/Citric Acid Liq) 30 ml PO BLENDING LINE ATTEND[employer] [facility] Stop: 06/12/18 13:44 Fentanyl Citrate (Fentanyl Inj) 50 mcg IV.PUSH Q1H PRN PRN Reason: Pain Scale 3 - 5 Fentanyl Citrate (Fentanyl Inj) 100 mcg IV.PUSH Q1H PRN PRN Reason: PAIN SCALE 6 TO 10 Sodium Chloride (Ns Inj) 500 mls @ 1,000 mls/hr IV.SIG UNSCH PRN PRN Reason: SEE LABEL COMMENTS Sodium Chloride (Ns Inj) 1,000 mls @ 100 mls/hr IV.CONT .Q10H PRN PRN Reason: SEE LABEL COMMENTS Oxytocin (Pitocin 30 Units/Ns 500 Ml Premix) 30 units in 500 mls @ 100 mls/hr IV.SIG UNSCH PRN PRN Reason: Heavy bleeding Ibuprofen (Motrin) 800 mg PO Q8H PRN PRN Reason: pain scale 1-10 Last Admin: 06/10/18 02:31 Dose: 800 mg Lidocaine HCl (Xylocaine 1% Inj) 0.1 ml I-DERMAL PRN PRN PRN Reason: For IV start Stop: 06/11/18 12:02 Lidocaine HCl (Xylocaine 1% Inj) 10 ml INFILTRATN PRN PRN PRN Reason: For episiotomy repair Stop: 06/10/18 12:02 Methadone HCl (Dolophine) 150 mg PO DAILY [facility] Last Admin: 06/10/18 08:51 Dose: 150 mg Mineral Oil (Muri-Lube Oil) 10 ml TOPICAL PRN PRN PRN Reason: PRN perineal massage Naloxone HCl (Narcan Inj) 0.1 mg IV.PUSH Q2M PRN PRN Reason: for opiate reversal Oxycodone/Acetaminophen (Percocet 5/325 Mg) 1 tab PO Q4H PRN PRN Reason: PAIN SCALE 3 TO 5 Oxycodone/Acetaminophen (Percocet 5/325 Mg) 2 tab PO Q4H PRN PRN Reason: PAIN SCALE 6 TO 10 Last Admin: 06/10/18 06:33 Dose: 2 tab Sodium Chloride (Ns Flush) 2 ml IV.FLUSH BID [facility] Last Admin: 06/10/18 08:51 Dose: Not Given Sodium Chloride (Ns Flush) 2 ml IV.FLUSH PRN PRN PRN Reason: FLUSH AFTER USING IV ACCESS Assessment and Plan - Diagnosis (1) 40 weeks gestation of Code(s): Z3A.40 - 40 weeks gestation of Status: Acute (2) Uterine contractions during Code(s): O62.2 - Other uterine inertia Status: Acute (3) Desires (vaginal after ) trial Code(s): O34.219 - Maternal care for unspecified type scar from previous delivery Status: Acute - Plan 32 y/o female who is POD# 2 s/p emergent CXN for non-reassuring tracing - labs showed non-reactive hepatitis panel, non-detectable G/C, rubella indeterminate, and RPR non-reactive. -MMR ordered. -H&H stable post-operatively at 8.4, from 9.9 pre-operatively. C/S with EBL of 700 mL. -Continue routine care. -Motrin and Percocet PRN pain. To be discharged with Rx. -Continue home dose of Methadone. -Encouraged OOB. Advised pelvic rest for 6 wks. Will need a f/u appt. in 1 wk for incision check. -Re: ctrl, she would like to consider her options further. -Patient stable for discharge to home today. [facility] attending, Dr. Berg
[2018-06-10] MEDS ORDERED: Diphtheria/Tetanus/Pertussis Vaccine Inj 0.5 ML Syringe IM ONE (11:45)
== END 2018-06-10 13:40 | disposition home or self-care (01) ==
LOC: HOBED 10:49 → H2E 12:02 → H1EA 16:44
PROVIDERS: ADMIT Obstetrics & Gynecology; ATTEND Obstetrics & Gynecology